=== PATIENT | male | born 1960 | race Two or more races ===

== ENCOUNTER 2022-11-22 22:37 | Inpatient (IN) | payer OTHER ==
[~2022-11-22] VITALS: Ht 188 cm; Wt 90.7 kg
--- NOTE | 2022-11-22 22:48 | NUR ---
bibpa, from snf, c/o dizziness and multiple falls. PLACED IN BED, AAOX4, BREATHING UNLABORED SATURATING AT 96%RA.
--- NOTE | 2022-11-22 23:07 | NUR ---
HEALTH AND WELLNESS COORDINATOR AT PT'S BEDSIDE
--- NOTE | 2022-11-22 23:23 | NUR ---
STATUARY PAINTER AT PT'S BEDSIDE
[2022-11-22 23:24] LABS: BASOPHILS # (AUTO) 0.1 K/uL (0.0-0.2); BASOPHILS % (AUTO) 0.6 % (0.0-2.0); EOSINOPHILS % (AUTO) 1.7 % (0.0-6.0); HEMATOCRIT 42 % (39-51); HEMOGLOBIN 13.8 g/dL (13.5-17.5); LYMPHOCYTES # (AUTO) 1.7 K/uL (0.8-4.8); LYMPHOCYTES % (AUTO) 14.8 % (20.0-44.0); MEAN CORPUSCULAR HGB CONC 33 g/dl (31.0-36.0); MEAN CORPUSCULAR VOLUME 90 fL (80-96); MONOCYTES # (AUTO) 1.3 K/uL (0.1-1.30); MONOCYTES % (AUTO) 11.2 % (2.0-12.0); NEUTROPHILS # (AUTO) 8.5 K/uL (1.8-8.9); NEUTROPHILS % (AUTO) 71.7 % (43.0-81.0); PLATELET COUNT (AUTO) 207 K/uL (150-450); RED BLOOD CELL COUNT(AUTO) 4.64 MIL/uL (4.5-6.0); WHITE BLOOD COUNT (AUTO) 11.8 K/uL (4.3-11.0)
--- NOTE | 2022-11-22 23:31 | NUR ---
COVID ANTIGEN SWAB COLLECTED AND SENT TO LAB
[2022-11-22 23:42] LABS: CALCIUM, SERUM 9.1 mg/dL (8.5-10.1); CARBON DIOXIDE 28 mmol/L (21-32); CHLORIDE 101 mmol/L (98-107); CREATININE 1.6 mg/dL (0.6-1.3); GLUCOSE 148 mg/dL (74-106); POTASSIUM 3.4 mmol/L (3.5-5.1); SODIUM SERUM 140 mmol/L (136-145); UREA NITROGEN, BLOOD 35 mg/dL (7-18)
[2022-11-22 23:53] LABS: ALANINE AMINOTRANSFERASE 48 U/L (12-78); ALBUMIN 3.8 g/dL (3.4-5.0); ASPARTATE AMINOTRANSFERASE 37 U/L (15-37); BILIRUBIN,DIRECT 0.2 mg/dL (0.0-0.2); BILIRUBIN,TOTAL 0.8 mg/dL (0.2-1.0); TOTAL PROTEIN, SERUM 8.4 g/dL (6.4-8.2)
--- NOTE | 2022-11-22 23:53 | NUR ---
PT TAKEN TO CT VIA [facility]
[2022-11-22 23:55] LABS: ALKALINE PHOSPHATASE < 10 U/L (46-116)
[2022-11-23] VITALS (8 sets, daily range): BP systolic 77–140; BP diastolic 50–88
--- NOTE | 2022-11-23 00:48 | NUR ---
UPDATED HALIMA [phone] REGARDING ADMISSION
[2022-11-23] MEDS ORDERED: Magnesium 1GM/D5W 100ML PREMIX 100 ML IV SCH (01:30)
[2022-11-23] MEDS ORDERED: Z GUARD REMEDY 4 OZ OINT TP PRN (02:00)
[2022-11-23] MEDS ORDERED: MAGNESIUM HYDROXIDE 30 ML UDC PO PRN (02:00)
[2022-11-23] MEDS ORDERED: ACETAMINOPHEN 325 MG TABLET PO PRN (02:00)
[2022-11-23] MEDS ORDERED: MAG HYDROX/AL HYDROX/SIMETH 30 ML UDC PO PRN (02:00)
[2022-11-23] MEDS ORDERED: ONDANSETRON HCL/PF 4 MG/2 ML VIAL IVP PRN (02:00)
[2022-11-23] MEDS ORDERED: ZOLPIDEM TARTRATE 5 MG TABLET PO PRN (02:00)
[2022-11-23] MEDS ORDERED: Magnesium 1GM/D5W 100ML PREMIX 100 ML IV ONE (02:22)
--- NOTE | 2022-11-23 02:22 | NUR ---
report given to Lcuy CM to continue care.
[2022-11-23] MEDS: Magnesium 1GM/D5W 100ML PREMIX 100 ML IV SCH ×2 (02:24→03:43)
--- NOTE | 2022-11-23 02:55 | NUR ---
PLATE FURNACE OPERATOR ADMITTING NOTE RECEIVED PATIENT VIA JAVID JHA. A/O X4. ABLE TO MAKE NEEDS KNOWN. ON ROOM AIR TOLERATING WELL. NO SOB, BREATHING EVENLY AND UNLABORED. NO SIGNS OF DISTRESS. NOT IN ANY PAIN. PATIENT ON TELE MONITOR. SKIN ASSESSMENT AND BODY CHECK DONE: SKIN NOTED TO BE INTACT. NO COMPLAINS OF CHEST PAIN, BOWEL MOVEMENT ACTIVE IN ALL QUADRANTS, IV ACCESS ON LEFT ARM #20 INFUSING NS 0.9% @75CC/HR. PATIENT IS ORIENTED TO THE ROOM AND HOW TO USE THE CALL LIGHT PATIENT VERBALIZES UNDERSTANDING. ALL BELONGINGS ARE ACCOUNTED FOR. SAFETY MEASURE IN PLACE: BED LOCKED AND IN LOWEST POSITION, SIDE RAIL UP X2, CALL LIGHT AND BEDSIDE TABLE WITHIN PATIENT REACH, EXIT ALARM IS ON.
--- NOTE | 2022-11-23 03:10 | NUR ---
RN NOTE ORTHOSTATIC BP IS DONE RESULT IS: LAYING IN BED: BP 140/88 HR 66 SITTING: BP 110/71 HR 66 STANDING: BP 77/54 HR 89
[2022-11-23] MEDS: IV NS 0.9% 1,000 ML IV PRN ×2 (03:47→17:53)
--- NOTE | 2022-11-23 06:51 | NUR ---
BI DATA ARCHITECT CLOSING NOTE PATIENT IS AWAKE. A/O X4. ABLE TO MAKE NEEDS KNOWN. ON ROOM AIR TOLERATING WELL. NO SOB, BREATHING EVENLY AND UNLABORED. NO SIGNS OF DISTRESS. NOT IN ANY PAIN. PATIENT ON TELE MONITOR READING OF SINUS UMM 56BPM. NO COMPLAINS OF CHEST PAIN, IV ACCESS ON LEFT ARM #20 INFUSING NS 0.9% @75CC/HR. ALL DUE MEDICATION IS GIVEN. ALL NEEDS ARE MET. MADE SURE PATIENT IS CLEAN AND COMFORTABLE. SAFETY MEASURE IN PLACE: BED LOCKED AND IN LOWEST POSITION, SIDE RAIL UP X2, CALL LIGHT AND BEDSIDE TABLE WITHIN PATIENT REACH, EXIT ALARM IS ON. WILL ENDORSE TO NEXT SHIFT NURSE FOR CONTINUITY OF CARE.
--- NOTE | 2022-11-23 07:00 | NUR ---
TACK WELDER OPENING NOTES: RECEIVED PT IN BED AWAKE, ALERT AND ORIENTED X 4 AND ABLE TO MAKE NEEDS KNOWN. NO SOB OR CARDIAC DISTRESS NOTED. ON TELE MONITOR WITH CURRENT READING SINUS UMM @56 BPM. DENIES PAIN AT THIS TIME. IV ACCESS ON LEFT ARM GAUGE 20, PATENT INTACT AND INFUSING NS 1L@ 75ML/HR. SAFETY MEASURES MAINTAINED: BED LOCKED AND IN LOWEST POSITION, SIDE RAILS UP X 2 CALL LIGHT IN EASY REACH FOR HELP. WILL MONITOR PT ACCORDINGLY.
--- NOTE | 2022-11-23 12:00 | NUR ---
RN NOTES: ORTHOSTATIC BP LAYING DOWN 140/90,SITTING UP 120/70,STANDING UP 120/75
[2022-11-23 12:08] LABS: CALCIUM, SERUM 8.7 mg/dL (8.5-10.1); CREATININE 1.4 mg/dL (0.6-1.3); POTASSIUM 3.2 mmol/L (3.5-5.1)
--- NOTE | 2022-11-23 13:00 | NUR ---
RN NOTES: INFORMED DR MONTES (NURSING STATION) PT'S K LEVEL IS 3.2 STATED "OKAY"
[2022-11-23 13:30] LABS: BASOPHILS % (AUTO) 0.4 % (0.0-2.0); EOSINOPHILS % (AUTO) 1.8 % (0.0-6.0); HEMATOCRIT 40 % (39-51); HEMOGLOBIN 13.5 g/dL (13.5-17.5); LYMPHOCYTES % (AUTO) 10.6 % (20.0-44.0); MEAN CORPUSCULAR HGB CONC 34 g/dl (31.0-36.0); MEAN CORPUSCULAR VOLUME 92 fL (80-96); MONOCYTES % (AUTO) 10.6 % (2.0-12.0); NEUTROPHILS % (AUTO) 76.6 % (43.0-81.0); PLATELET COUNT (AUTO) 166 K/uL (150-450); RED BLOOD CELL COUNT(AUTO) 4.39 MIL/uL (4.5-6.0); WHITE BLOOD COUNT (AUTO) 9.2 K/uL (4.3-11.0)
--- NOTE | 2022-11-23 15:55 | NUR ---
RN NOTES: INFORMED AGAIN DR MONTES FOR PT'S POTASSIUM LEVEL 3.2, DR MONTES ORDERED K DURULE 40MG PO. ORDERS NOTED AND CARRIED OUT.
[2022-11-23] MEDS ORDERED: POTASSIUM CHLORIDE 20 MEQ TAB.PRT.SR PO ONE ×2 (16:00)
[2022-11-23 18:43] LABS: BILIRUBIN,URINE NEGATIVE (NEGATIVE); COLOR,URINE YELLOW (YELLOW); LEUKOCYTE ESTERASE ,URINE NEGATIVE (NEGATIVE); NITRITE, URINE NEGATIVE (NEGATIVE); PROTEIN,URINE NEGATIVE (NEGATIVE); UGLUCOSE 3+ mg/dL (NEGATIVE)
--- NOTE | 2022-11-23 18:57 | NUR ---
CNC CUTTING OPERATOR CLOSING NOTES: PT IN BED AWAKE, ALERT AND ORIENTED X 4 AND ABLE TO MAKE NEEDS KNOWN. NO SOB OR CARDIAC DISTRESS NOTED. ON TELE MONITOR WITH CURRENT READING SINUS RHYTHM @63 BPM. DENIES PAIN AT THIS TIME. IV ACCESS ON LEFT ARM GAUGE 20, PATENT INTACT AND INFUSING NS 1L@ 75ML/HR. SAFETY MEASURES MAINTAINED: BED LOCKED AND IN LOWEST POSITION, SIDE RAILS UP X 2 CALL LIGHT IN EASY REACH FOR HELP. WILL MONITOR PT ACCORDINGLY. ENDORSED TO [employer] R INSTRUCTOR RN FOR CONTINUITY OF CARE.
[2022-11-23 19:25] LABS: BACTERIA,URINE None seen /HPF (None Seen); MUCUS,URINE Few /LPF (None Seen); WBC,URINE 0-2 /HPF (0-3)
--- NOTE | 2022-11-23 19:45 | NUR ---
RN OPENING NOTE; RECEIVED PT IN BED SLEEPING BUT EASY TO AROUSED AOX4,ON RM AIR LUIS WELL SAT 98%,NO SOB/DISTRESS NOTED,NO PAIN/DISCOMFORT AT THIS TIME,IV ACCESS ON L ARM 20G WITH NS 75ML/HR INFUSING WELL,SAFETY MEASURE IN PLACE,CALL LIGHT WITHIN REACH,WILL CONTINUE TO MONITOR.
[2022-11-24] VITALS (8 sets, daily range): BP systolic 113–166; BP diastolic 55–91
[2022-11-24 05:55] LABS: BASOPHILS % (AUTO) 0.6 % (0.0-2.0); EOSINOPHILS % (AUTO) 3.2 % (0.0-6.0); HEMATOCRIT 38 % (39-51); HEMOGLOBIN 12.5 g/dL (13.5-17.5); LYMPHOCYTES % (AUTO) 12.5 % (20.0-44.0); MEAN CORPUSCULAR HGB CONC 33 g/dl (31.0-36.0); MEAN CORPUSCULAR VOLUME 93 fL (80-96); MONOCYTES % (AUTO) 12.4 % (2.0-12.0); NEUTROPHILS # (AUTO) 5.6 K/uL (1.8-8.9); NEUTROPHILS % (AUTO) 71.3 % (43.0-81.0); PLATELET COUNT (AUTO) 153 K/uL (150-450); RED BLOOD CELL COUNT(AUTO) 4.07 MIL/uL (4.5-6.0); WHITE BLOOD COUNT (AUTO) 7.9 K/uL (4.3-11.0)
[2022-11-24 06:17] LABS: ALBUMIN 2.9 g/dL (3.4-5.0); BILIRUBIN,TOTAL 0.6 mg/dL (0.2-1.0); CALCIUM, SERUM 8.5 mg/dL (8.5-10.1); MAGNESIUM 2.1 mg/dL (1.8-2.4); PHOSPHORUS 2.7 mg/dL (2.5-4.9); POTASSIUM 4.1 mmol/L (3.5-5.1); TOTAL PROTEIN, SERUM 6.8 g/dL (6.4-8.2)
--- NOTE | 2022-11-24 06:19 | NUR ---
RN CLOSING NOTE; PT IN BED AWAKED AOX4,ABLE TO MAKE NEEDS KNOWN,ON RM AIR LUIS WELL SAT 97%,NO SOB/DISTRESS NOTED,NO PAIN/DISCOMFORT DURING SHIFT,DUE MEDS GIVEN ORDER,ALL NEEDS ATTENDED,IV ACCESS ON L ARM 20G WITH NS 75ML/HR INFUSING WELL,PT AMBULATORY WITH STEADY GAIT,SAFETY MEASURE IN PLACE,CALL LIGHT WITHIN REACH,WILL ENDORSED TO NEXT SHIFT.
--- NOTE | 2022-11-24 07:45 | NUR ---
SURVEY RESEARCH ASSOCIATE OPENING NOTES: PT IN BED AWAKE, ALERT AND ORIENTED X 4 AND ABLE TO MAKE NEEDS KNOWN. NO SOB OR CARDIAC DISTRESS NOTED. ON TELE MONITOR WITH CURRENT READING SINUS UMM @58 BPM. DENIES PAIN AT THIS TIME. IV ACCESS ON LEFT ARM GAUGE 20, PATENT INTACT AND INFUSING NS 1L@ 75ML/HR. SAFETY MEASURES MAINTAINED: BED LOCKED AND IN LOWEST POSITION, SIDE RAILS UP X 2 CALL LIGHT IN EASY REACH FOR HELP. WILL MONITOR PT ACCORDINGLY. WILL CONTINUE TO MONITOR.
[2022-11-24] MEDS ORDERED: MELA5TAB PO (10:28)
[2022-11-24] MEDS ORDERED: SERT100T12 PO (10:28)
[2022-11-24] MEDS ORDERED: FURO40TA5 PO (10:28)
[2022-11-24] MEDS ORDERED: MULT-447 PO (10:28)
[2022-11-24] MEDS ORDERED: ACET325C7 PO (10:28)
[2022-11-24] MEDS ORDERED: ATOR40TA PO (10:28)
[2022-11-24] MEDS ORDERED: AMLO-213 PO (10:28)
[2022-11-24] MEDS ORDERED: AMIO200T5 PO (10:28)
[2022-11-24] MEDS ORDERED: DIGO125T PO (10:28)
[2022-11-24] MEDS ORDERED: METF-440 PO (10:28)
[2022-11-24] MEDS ORDERED: MAGN400O6 PO (10:28)
[2022-11-24] MEDS ORDERED: ASCO-352 PO (10:28)
[2022-11-24] MEDS ORDERED: RIVA10TA PO (10:28)
[2022-11-24] MEDS ORDERED: ASPI-1169 PO (10:28)
[2022-11-24] MEDS ORDERED: SPIR25TA6 PO (10:28)
[2022-11-24] MEDS ORDERED: ACET-2605 PO ×2 (10:28)
[2022-11-24] MEDS ORDERED: NITR0.4T48 SL (10:28)
[2022-11-24] MEDS ORDERED: CALC1TAB30 PO (10:28)
[2022-11-24] MEDS ORDERED: ARIP10TA57 PO (10:28)
[2022-11-24] MEDS ORDERED: HYDR-4076 PO (10:28)
[2022-11-24] MEDS ORDERED: GLUC1KIT IM (10:28)
[2022-11-24] MEDS ORDERED: CARV25TA2 PO (10:28)
[2022-11-24] MEDS ORDERED: LISI20TA30 PO (10:28)
[2022-11-24] MEDS ORDERED: SACU1TAB4 PO (10:28)
[2022-11-24] MEDS ORDERED: CRAN425C6 PO (10:28)
[2022-11-24] MEDS ORDERED: DOCU-141 PO (10:28)
[2022-11-24] MEDS ORDERED: EMPA10TA PO (10:28)
[2022-11-24] MEDS ORDERED: QUET25TA PO (10:28)
[2022-11-24] MEDS ORDERED: IOHEXOL-350 100 ML VIAL IV ONE (10:41)
[2022-11-24] MEDS ORDERED: IV NS 0.9% 250 ML IV ONE (10:41)
--- NOTE | 2022-11-24 11:41 | NUR ---
rn notes orthostatic BP taken lying-130/80 sitting-120/80 standing-90/60. Notified Raissa Smith NP. To monitor
[2022-11-24] MEDS ORDERED: IV NS 0.9% 1,000 ML IV ONE (12:00)
[2022-11-24] MEDS: ASPIRIN 81 MG TAB.CHEW PO SCH (12:22)
[2022-11-24] MEDS: DOCUSATE SODIUM 100 MG CAPSULE PO SCH ×2 (12:22→16:18)
[2022-11-24] MEDS: SERTRALINE HCL 50 MG TABLET PO SCH (12:22)
[2022-11-24] MEDS: QUETIAPINE FUMARATE 25 MG TABLET PO SCH (16:18)
[2022-11-24] MEDS: IV NS 0.9% 1,000 ML IV PRN (17:13)
[2022-11-24] MEDS ORDERED: RIVAROXABAN 10 MG TABLET PO SCH (18:00)
--- NOTE | 2022-11-24 18:50 | NUR ---
SHOP FOREMAN CLOSING NOTES: PT IN BED AWAKE, ALERT AND ORIENTED X 4 AND ABLE TO MAKE NEEDS KNOWN. NO SOB OR CARDIAC DISTRESS NOTED. ON TELE MONITOR WITH CURRENT READING SINUS UMM @55 BPM. DENIES PAIN AT THIS TIME. IV ACCESS ON LEFT ARM GAUGE 20, PATENT INTACT AND INFUSING NS 1L@ 75ML/HR. SAFETY MEASURES MAINTAINED: BED LOCKED AND IN LOWEST POSITION, SIDE RAILS UP X 2 CALL LIGHT IN EASY REACH FOR HELP. WILL MONITOR PT ACCORDINGLY. ENDORSED TO NEXT NURSE.
--- NOTE | 2022-11-24 19:33 | NUR ---
SHOP COORDINATOR OPENING NOTE PATIENT SLEEPING IN BED, EASILY AWAKENED, PT ALERT/ORIENTED X 4, PT ABLE TO MAKE NEEDS KNOWN. PATIENT DENIES PAIN AT THIS TIME. PATIENT STABLE ON RA, NO S/S OF DISTRESS OR SOB NOTED, BREATHING EVEN AND UNLABORED. PATIENT ON TELE MONITOR READING A PACING, HR: 64. IV ACCESS ON LEFT ARM #20G INTACT AND INFUSING NS @ 75 ML/HR. SAFETY MEASURES IN PLACE: CALL LIGHT WITHIN REACH, SIDE RAILS UP X 2, BED LOCKED IN LOWEST POSITION, HOB ELEVATED, BED ALARM ON. WILL CONTINUE TO MONITOR PATIENT
[2022-11-24] MEDS ORDERED: ATORVASTATIN 40 MG TABLET PO SCH (22:00)
[2022-11-25] VITALS (8 sets, daily range): BP systolic 138–165; BP diastolic 81–98
[2022-11-25 05:50] LABS: BASOPHILS % (AUTO) 0.6 % (0.0-2.0); EOSINOPHILS % (AUTO) 2.8 % (0.0-6.0); HEMATOCRIT 36 % (39-51); HEMOGLOBIN 11.9 g/dL (13.5-17.5); LYMPHOCYTES # (AUTO) 1.1 K/uL (0.8-4.8); LYMPHOCYTES % (AUTO) 14.4 % (20.0-44.0); MEAN CORPUSCULAR HGB CONC 34 g/dl (31.0-36.0); MEAN CORPUSCULAR VOLUME 91 fL (80-96); MONOCYTES # (AUTO) 0.8 K/uL (0.1-1.30); MONOCYTES % (AUTO) 10.2 % (2.0-12.0); NEUTROPHILS # (AUTO) 5.3 K/uL (1.8-8.9); PLATELET COUNT (AUTO) 141 K/uL (150-450); RED BLOOD CELL COUNT(AUTO) 3.91 MIL/uL (4.5-6.0); WHITE BLOOD COUNT (AUTO) 7.4 K/uL (4.3-11.0)
[2022-11-25 06:06] LABS: CALCIUM, SERUM 8.2 mg/dL (8.5-10.1); CREATININE 0.9 mg/dL (0.6-1.3); MAGNESIUM 1.8 mg/dL (1.8-2.4); PHOSPHORUS 2.2 mg/dL (2.5-4.9)
[2022-11-25] MEDS: IV NS 0.9% 1,000 ML IV PRN (06:43)
--- NOTE | 2022-11-25 06:55 | NUR ---
LOSS PREVENTION DETECTIVE CLOSING NOTE PATIENT SLEEPING IN BED, EASILY AWAKENED, PT ALERT/ORIENTED X 4, PT ABLE TO MAKE NEEDS KNOWN. PATIENT DENIES PAIN AT THIS TIME. PATIENT STABLE ON RA, NO S/S OF DISTRESS OR SOB NOTED, BREATHING EVEN AND UNLABORED. PATIENT ON TELE MONITOR READING A PACING, HR: 58. IV ACCESS ON LEFT ARM #20G INTACT AND INFUSING NS @ 75 ML/HR. NO SIGNIFICANT CHANGES THIS SHIFT, PT SLEPT WELL THROUGH THE NIGHT, MEDICATIONS GIVEN ORDERED. SAFETY MEASURES IN PLACE: CALL LIGHT WITHIN REACH, SIDE RAILS UP X 2, BED LOCKED IN LOWEST POSITION, HOB ELEVATED, BED ALARM ON. WILL ENDORSE TO DAYSHIFT RN FOR CONTINUITY OF CARE
--- NOTE | 2022-11-25 07:29 | NUR ---
INSPECTING AND TESTING LEAD HAND OPENING NOTE Received pt in bed, awake. A/O x 4, able to make needs known. No c/o pain/discomfort at this time. On room air, tolerating well. On tele monitor with current reading of A-pacing-50. Iv access in the left arm #20g with ongoing ivf of NS at 75 ml/hr, infusing well. Safety measures in place: bed in lowest locked position, side rails up x 2, call light and tray table within easy reach. Will continue to monitor.
[2022-11-25] MEDS: QUETIAPINE FUMARATE 25 MG TABLET PO SCH (08:54)
[2022-11-25] MEDS: SERTRALINE HCL 50 MG TABLET PO SCH (08:54)
[2022-11-25] MEDS: ASPIRIN 81 MG TAB.CHEW PO SCH (08:54)
[2022-11-25] MEDS: DOCUSATE SODIUM 100 MG CAPSULE PO SCH ×2 (08:56→12:07)
[2022-11-25] MEDS ORDERED: MULTIVITAMIN/LUTEIN/MINERALS 1 TAB PO SCH (09:00)
[2022-11-25] MEDS ORDERED: CALCIUM CARB 600MG /VIT D 1 EACH TABLET PO SCH (09:00)
--- NOTE | 2022-11-25 09:05 | NUR ---
RN NOTES Colace 100mg tab due at 0900 not given, pt verbalized he had liquid stool. Will continue to monitor.
[2022-11-25] MEDS ORDERED: NEUTRA PHOS 1 POWD.PACKET PO ONE (11:00)
--- NOTE | 2022-11-25 13:00 | NUR ---
RN NOTES Colace 100mg tab due at 1300 not given, pt verbalized he had liquid stool. Will continue to monitor.
--- NOTE | 2022-11-25 13:50 | NUR ---
RN NOTES Patient verbalized he has headache, Tylenol 650mg po prn given at 1348. Will continue to monitor.
[2022-11-25] MEDS ORDERED: AMLO-212 PO (14:06)
--- NOTE | 2022-11-25 16:50 | NUR ---
MAKEUP ARTIST NOTE Patient discharged to [facility] in stable condition. A/O x 4, on room air, tolerating well. V/S taken and recorded. IV access removed, dry dressing applied on site. All belongings accounted for. Discharge instruction given to patient, verbalized understanding. conveyor monitor removed. Report given to RN Montserrat, verbalized understanding. Md and charge nurse aware of discharge. Pt left the unit at 1646 via gurney accompanied by 2 transporter.
== END 2022-11-25 16:45 | DRG 204 ==
LOC: ER 22:39 → TELE 11-23 01:48
PROVIDERS: ADMIT Nurse Practitioner Acute Care; ATTEND Nurse Practitioner Acute Care
DX: I95.1 Orthostatic hypotension (principal); N17.0 Acute kidney failure with tubular necrosis; I50.30 Unspecified diastolic (congestive) heart failure; D63.8 Anemia in other chronic diseases classified elsewhere; E86.0 Dehydration; I65.09 Occlusion and stenosis of unspecified vertebral artery; I48.91 Unspecified atrial fibrillation; E86.1 Hypovolemia; Z20.822 Contact with and (suspected) exposure to COVID-19; I25.10 Atherosclerotic heart disease of native coronary artery without angina pectoris; D50.8 Other iron deficiency anemias; E87.6 Hypokalemia; N40.0 Benign prostatic hyperplasia without lower urinary tract symptoms; R29.6 Repeated falls; Y92.129 Unspecified place in nursing home as the place of occurrence of the external cause; W01.198A Fall on same level from slipping, tripping and stumbling with subsequent striking against other object, initial encounter; T46.0X5A Adverse effect of cardiac-stimulant glycosides and drugs of similar action, initial encounter; Z95.810 Presence of automatic (implantable) cardiac defibrillator
CPT/HCPCS: 36415; 70450-TC; 70496-TC; 70498-TC; 71045-TC; 76770-TC; 80048-TC; 80053-TC; 80076-TC; 80162-TC; 81001; 83735-TC; 83880; 84100-TC; 84132-TC; 84484-TC; 85025-TC; 87081-TC; 93307-TC; 97116-TC; 97530-TC; A4223; C9803; G0378; J3475; J7030; J7050; Q9967